=== PATIENT | female | born 1985 | race Caucasian/White ===

== ENCOUNTER 2018-05-31 05:30 | Inpatient (IN) | payer BC ==
[~2018-05-31 05:30] MED LIST: CITRIC ACID/SODIUM CITRATE 30 ML UNIT-DOSE CUP PO ONE; ELECTROLYTE-148 SOLN 500 ML IV SCH
[2018-05-31] MEDS ORDERED: ELECTROLYTE-148 SOLN 1,000 ML IV SCH ×2 (06:00→09:15)
[2018-05-31 06:17] VITALS: BMI 34.0
[2018-05-31] MEDS ORDERED: morphine SULFATE/Preservative Free 0.5 MG/ML (1cc Syringe) ONE (07:32)
[2018-05-31] MEDS ORDERED: OXYTOCIN 20 UNITS in 0.9% NS 40 UNIT/2,000 ML INFUS.BAG IV ONE (08:02)
[2018-05-31 08:52] LABS: ARTERIAL BLD GAS O2 SATURATION 36.7 % (90-98.9); ARTERIAL BLOOD GAS BASE EXCESS -1.4 meq/l (-2-2); ARTERIAL BLOOD GAS PCO2 49.5 mmHg (35-45); ARTERIAL BLOOD GAS PO2 20.1 mmHg (80-100); ARTERIAL BLOOD GAS pH 7.32 (7.35-7.45)
[2018-05-31 08:56] LABS: VENOUS PC02 45.4 mmHg (38-52); VENOUS PH 7.36 (7.32-7.42); VENOUS PO2 27.1 mmHg (28-48)
--- NOTE | 2018-05-31 09:01 | HP ---
Past Medical History - Past Medical History ...: 1 ...Para: 0 ...LMP: 09/01/17 ...EDC by [facility]: 06/07/18 - Smoking History Smoking history: Never smoked - Alcohol/Substance Use Hx Alcohol Use: No Home Medications - Allergies Allergies/Adverse Reactions: Allergies Allergy/AdvReac Type Severity Reaction Status Date / Time Penicillins Allergy Intermediate Hives Verified 05/31/18 06:24 - Home Medications Home Medications: Ambulatory Orders Vitamin Tablet 1 tab PO DAILY 05/31/18 Physical Exam - Maternity Vital Signs: Vital Signs Temperature 98.5 F 05/31/18 06:20 Pulse Rate 86 05/31/18 06:20 Respiratory Rate 20 05/31/18 06:20 Blood Pressure 128/70 05/31/18 06:20 O2 Sat by Pulse Oximetry (%)
--- NOTE | 2018-05-31 09:01 | OP ---
Operative Note - Note: Operative Date: 05/31/18 Pre-Operative Diagnosis: 33yo P0 @ 39 wks in breech Operation: Primary c/section Findings: viable male, APGARs 9 Post-Operative Diagnosis: Same as Pre-op Surgeon: Elle David Anesthesiologist/METAL SPRAYER: Sunil Rock Anesthesia: Spinal Estimated Blood Loss (mls): 500 Operative Report Dictated: Yes
[2018-05-31] MEDS ORDERED: BENZOCAINE 28 GM HEMORRHOIDAL OINTMENT TP PRN (09:02)
[2018-05-31] MEDS ORDERED: METHYLERGONOVINE MALEATE 0.2 MG/1 ML AMP IM PRN (09:02)
[2018-05-31] MEDS ORDERED: WITCH HAZEL 50% (TUCKS) 40 PAD/JAR PAD TP PRN (09:02)
[2018-05-31] MEDS ORDERED: BENZOCAINE 20% 57 GM BOTTLE TP PRN (09:02)
--- NOTE | 2018-05-31 09:02 | PN ---
Delivery - Delivery Section: Primary, Low Flap Transverse Episiotomy/Laceration: None EBL (cc): 500 Delivery, Single - Stages of Labor Date of Delivery: 05/31/18 Date Placenta Delivered: 05/31/18 Placenta: Yes: Expressed - Condition of Infant Manager Of Exhibitions And Collections/Compounding Assistant Present: Yes Gender: Male - 1 Minute Total Score: 9 5 Minutes Total Score: 9 - Feeding Plan Initial Plan: Exclusive throughout hospitalization
[2018-05-31] MEDS ORDERED: TUBERCULIN PPD 5 TU/0.1ML SYRINGE (IN PATIENT USE ONLY) ID ONE (10:00)
[2018-05-31] MEDS ORDERED: ENOXAPARIN NA (PORCINE) 40 MG/0.4 ML DISP.SYRIN SQ SCH (10:00)
[2018-05-31] MEDS ORDERED: ONDANSETRON 4 MG/2 ML VIAL IVPUSH PRN (10:13)
[2018-05-31] MEDS ORDERED: IBUPROFEN 800 MG/8 ML IJ IVPB ONE (11:33)
[2018-05-31] MEDS: IBUPROFEN 800 MG/8 ML IJ IVPB PRN (11:45)
[2018-05-31] MEDS ORDERED: ACETAMINOPHEN 1000 MG/100 ML VIAL (NON FORMULARY) IVPB ONE (16:33)
[2018-06-01] MEDS: IBUPROFEN 800 MG/8 ML IJ IVPB PRN (05:15)
--- NOTE | 2018-06-01 07:11 | PN ---
Post Progress Note - Subjective Subjective: Patient without acute complaints. Continued vulvar swelling, R>L, improved from overnight Tolerating PO intake, without nausea or vomiting No voiding, callejas in place draining clear fluid No ambulation or flatus yet. Denies fevers or chills. Pain well controlled. Post Day: 1 Type of Delivery: Primary C/S Vital Signs: Vital Signs Temperature 98.9 F 06/01/18 06:00 Pulse Rate 82 06/01/18 06:00 Respiratory Rate 20 06/01/18 06:00 Blood Pressure 107/54 L 06/01/18 06:00 O2 Sat by Pulse Oximetry (%) 100 05/31/18 10:30 Breast Exam: Yes: Soft Uterus: Yes: Fundus Firm Incision: Yes: Dressing dry and intact Abdomen/GI: Yes: Abdomen soft, Abdominal Distention (soft, mild), Passing flatus , Tolerating PO. No: Tender Lochia: Yes: Serosa Lochia, amount: Small Extremities: Yes: Calves non-tender, Edema (trace) Perineum: Yes: Intact (vulvar edema, L > R) Assessment/Plan 33 yo POD # 1 s/p CD, afebrile, vital signs stable, doing well 1. Continue routine postoperative care. 2. Follow up AM CBC 3. Rh positive status, no rhogam indicated. 4. Encourage ambulation and incentive spirometer use 5. Continue oral pain medication 6. Continue ice packs to vulva 7. Anticipate discharge home postoperative day #3 or #4
[2018-06-01 08:07] LABS: BASO % 0.6 % (0-2.0); EOS % 0.1 % (0-4.5); HEMATOCRIT 24.9 % (32.4-45.2); HEMOGLOBIN 8.2 GM/dL (10.7-15.3); LYMPH % 19.1 % (8-40); MCH 28.2 pg (25.7-33.7); MCHC 32.9 g/dl (32.0-36.0); MEAN CELL VOLUME 85.5 fl (80-96); MEAN PLT VOLUME 9.1 fl (7.5-11.1); MONO % 8.2 % (3.8-10.2); PLATELET COUNT 205 K/MM3 (134-434); RBC 2.92 M/mm3 (3.60-5.2); RDW 15.1 % (11.6-15.6)
[2018-06-01] MEDS ORDERED: BISACODYL 10 MG SUPP.RECT RC PRN (09:02)
[2018-06-01] MEDS: ENOXAPARIN NA (PORCINE) 40 MG/0.4 ML DISP.SYRIN SQ SCH (10:11)
--- NOTE | 2018-06-01 10:30 | PN ---
Progress Note (short form) - Note Progress Note: POD #1 - s/p under spinal anesthesia with duramorph. VSS. Pt. doing well, walking about room comfortably. No complaints. Good pain control. No apparent anesthetic complications noted. Continue current care.
[2018-06-01] MEDS: SIMETHICONE 80 MG TAB.CHEW (FP) PO PRN ×2 (10:47→18:36)
[2018-06-01] MEDS: ACETAMINOPHEN 500 MG TABLET (FP) PO PRN ×2 (10:47→18:35)
[2018-06-01] MEDS: IBUPROFEN 600 MG TABLET (FP) PO PRN ×2 (10:48→18:36)
[2018-06-02] MEDS: SIMETHICONE 80 MG TAB.CHEW (FP) PO PRN (02:23)
[2018-06-02] MEDS: IBUPROFEN 600 MG TABLET (FP) PO PRN ×2 (02:23→11:27)
[2018-06-02] MEDS: ACETAMINOPHEN 325 MG TABLET (FP) PO PRN ×2 (02:24→11:26)
--- NOTE | 2018-06-02 08:04 | PN ---
Progress Note (short form) - Note Progress Note: pod 2 s/p c/s , doing well, ambulating, passing gas, no excess vaginal bleeding , no dizziness CBC, BMP 06/01/18 07:45 Last Vital Signs Temp Pulse Resp BP Pulse Ox 98.5 F 88 18 130/79 100 06/01/18 22:00 06/01/18 22:00 06/01/18 22:00 06/01/18 22:00 05/31/18 10:30 abdomen soft, non tender , no cva incision dry, clean uterus firm lochia mild no calf tenderness impression pod 2 anemia , asymptomatic plan ambulate , will start iron vit on discharge
[2018-06-02] MEDS: ENOXAPARIN NA (PORCINE) 40 MG/0.4 ML DISP.SYRIN SQ SCH (11:26)
[2018-06-03] MEDS: IBUPROFEN 600 MG TABLET (FP) PO PRN ×2 (00:21→11:24)
[2018-06-03] MEDS: ACETAMINOPHEN 325 MG TABLET (FP) PO PRN ×2 (00:22→11:22)
[2018-06-03 07:20] LABS: BASO % 0.9 % (0-2.0); EOS % 1.7 % (0-4.5); HEMATOCRIT 25.3 % (32.4-45.2); HEMOGLOBIN 8.6 GM/dL (10.7-15.3); LYMPH % 20.6 % (8-40); MCH 29.2 pg (25.7-33.7); MCHC 34.2 g/dl (32.0-36.0); MEAN CELL VOLUME 85.4 fl (80-96); MEAN PLT VOLUME 8.9 fl (7.5-11.1); MONO % 8.5 % (3.8-10.2); NEUT % 68.3 % (42.8-82.8); PLATELET COUNT 229 K/MM3 (134-434); RBC 2.96 M/mm3 (3.60-5.2); RDW 15.1 % (11.6-15.6); WHITE BLOOD COUNT 10.4 K/mm3 (4.0-10.0)
--- NOTE | 2018-06-03 08:16 | DS ---
Physical Exam-[facility]IG[facility] Vital Signs: Vital Signs Temperature 97.9 F 06/02/18 22:00 Pulse Rate 85 06/02/18 22:00 Respiratory Rate 20 06/02/18 22:00 Blood Pressure 123/77 06/02/18 22:00 O2 Sat by Pulse Oximetry (%) 100 05/31/18 10:30 Constitutional: Yes: Well Nourished, No Distress, Calm Eyes: Yes: WNL, Conjunctiva Clear, EOM Intact HENT: Yes: WNL, Atraumatic, Normocephalic Neck: Yes: WNL, Supple, Trachea Midline Cardiovascular: Yes: WNL, Regular Rate and Rhythm Respiratory: Yes: WNL, Regular, CTA Bilaterally Gastrointestinal: Yes: WNL ...Rectal Exam: Yes: WNL Renal/: Yes: WNL ....Post : Yes: Uterus firm, Uterus non-tender, Slight lochia rubra Breast(s): Yes: WNL Musculoskeletal: Yes: WNL Extremities: Yes: WNL Edema: Yes Edema: LLE: Trace, RLE: Trace Integumentary: Yes: WNL Wound/Incision: Yes: Clean/Dry, Well Approximated, Sutures Intact Neurological: Yes: WNL, Alert, Oriented ...Motor Strength: WNL Psychiatric: Yes: WNL, Alert, Oriented Labs: CBC, BMP 06/03/18 06:00 Delivery - Delivery Section: Primary, Low Flap Transverse Type of Anesthesia: Spinal Episiotomy/Laceration: None EBL (cc): 500 Delivery, Single - Stages of Labor Date of Delivery: 05/31/18 Time of Delivery: 08:04 Time Placenta Delivered: 08:05 Placenta: Yes: Expressed - Condition of Infant Public Stenographer/Quahogger Present: Yes Name: Mai Wooten Gender: Male Weight: 7 lb 1 oz Total Hours ROM (Hrs/Mins): 0/2 - 1 Minute Total Score: 9 5 Minutes Total Score: 9 - [place] Feeding Plan Initial Plan: Exclusive throughout hospitalization Discharge Summary Reason For Visit: ADMIT-C/S Procedures: Principal: primary LST c/s Condition: Good - Instructions Diet, Activity, Other Instructions: regular diet, follow up in office 1 week , if fever, heavy vaginal bleeding, sever pain call md cont pnv, iron Referrals: Elle David MD [Staff Physician] - Disposition: HOME - Home Medications Comprehensive Discharge Medication List: Ambulatory Orders Vitamin Tablet 1 tab PO DAILY 05/31/18 Ibuprofen [Motrin -] 600 mg PO QID #28 tablet 06/02/18
[2018-06-03] MEDS: ENOXAPARIN NA (PORCINE) 40 MG/0.4 ML DISP.SYRIN SQ SCH (11:21)
[2018-06-03] MEDS: SIMETHICONE 80 MG TAB.CHEW (FP) PO PRN (11:24)
[2018-06-03 13:19] VITALS: BP 132/88; PULSE 78; TEMP 97.8
--- NOTE | 2018-06-12 17:41 | PATH ---
Surgical Pathology Report Patient Name: ROHAN RAMIREZ [place]. Rec. #: [id number] /Age/Gender: 1985 (Age: 33) / F Account: [id number] Location: [facility] OBS/CASINO INVESTIGATOR Taken: 05/31/2018 Received: 06/01/2018 Reported: 06/12/2018 Physicians: Elle David M.D. Specimen(s) Received PLACENTA Clinical History History of asthma, GERD Migraines Final Diagnosis PLACENTA, SECTION: 473 G THIRD TRIMESTER PLACENTA WITH TRIVASCULAR UMBILICAL CORD AND UNREMARKABLE PLACENTAL MEMBRANES. Electronically Signed Nahomy Leblanc M.D. Gross Description The specimen is received fresh labeled placenta and is a 473 gram, 16.0 x 15.5 x 2.8 cm. placenta with attached membranes and umbilical cord. The attached membranes are marrufo, translucent with focal opacities and insert marginally. The umbilical cord measures 15 cm. in length and averages 1.2 cm. in diameter. The cord inserts eccentrically, 4.5 cm. to the nearest margin. No true knots or strictures are identified. Cut surface of the umbilical cord reveals 3 vessels. The surface is berry-blue with minimal fibrin deposition and appropriate caliber vessels. The maternal surface is red-brown with focal defects. Sectioning reveals red-brown, spongy parenchyma. No lesions are identified. Manager Net sections are submitted in three cassettes as follows: 1- membrane rolls and umbilical cord; 2-3- full thickness sections of placenta. /06/09/201806/09/2018
--- NOTE | 2018-06-18 20:48 | OP ---
DATE OF OPERATION: DATE OF DICTATION: 06/18/2018 PREOPERATIVE DIAGNOSES: A 33-year-old, para 0, at 39 weeks, with fetus in breech presentation, for primary section. POSTOPERATIVE DIAGNOSES: A 33-year-old, para 0, at 39 weeks, with fetus in breech presentation, for primary section. PROCEDURE: Primary low-segment transverse section. SURGEON: Elle David MD CLINICAL CARE MANAGER: JUSTEN Hutchins ANESTHESIA: DESCRIPTION OF OPERATIVE PROCEDURE: After ensuring informed consent, patient was brought to the operating room, where she was placed in dorsal supine position with left lateral tilt. Abdomen was prepped and draped in sterile fashion. A Pfannenstiel skin incision was made with a scalpel and carried down to the level of fascia with Bovie cautery. Fascia was incised with the Bovie. Fascia was extended bilaterally with the Bovie cautery. Fascia was dissected off the rectus abdominis muscle with the Bovie cautery. Muscle was split in the midline. Peritoneum was tented and entered with Metzenbaum scissors, with good visualization of underlying structures. Fascial incision was extended superiorly and inferiorly. Bladder was retracted with the lower edge of the Gary. Vesicouterine peritoneum identified, incised, and bladder flap created, retracted with the low edge of the Christine. Gutters bilaterally packed with lap sponges. Uterine incision was made with the scalpel and extended bilaterally with bandage scissors. Infant's buttocks were delivered first. The infant was found to be in a complete breech presentation. The towel was applied to the 's sacrum and was maneuvered outside of the incision. Shoulders were delivered by rotating right and left shoulder, one at a time, atraumatically. The right Veit-Mauriceau maneuver was applied with fundal pressure to deliver the 's head, without any difficulty. Cord was clamped and cut. was handed to pediatricians. The placenta was expressed manually and uterus was cleared of clots and debris and repaired with 0 Biosyn in running locking fashion. The 2nd imbricating layer on the uterus was created to imbricate the first layer with 0 Biosyn as well. Excellent hemostasis was achieved. Abdomen was cleared of clots and debris. Lap sponges were removed. Abdomen was irrigated. Peritoneum was repaired with 0 Biosyn. The muscle was reapproximated at the midline. Fascia was closed with 0 Vicryl in running fashion. The skin was repaired with 4-0 Biosyn in a V-Loc suture. Abdomen was covered with dressings. The vagina was irrigated with Betadine and uterus was expressed. Excellent hemostasis was noted. EBL was 500 mL. Patient tolerated procedure well and was brought to the recovery room in stable condition. Phoebe FRASER/[id number]
== END 2018-06-03 14:05 | disposition home or self-care (01) | DRG 788 ==
LOC: JLDR 05:30 → J3W 13:05
PROVIDERS: ADMIT Obstetrics & Gynecology; ATTEND Obstetrics & Gynecology
PROC: 10D00Z1 Extraction of Products of Conception, Low, Open Approach (ICD-10-PCS; principal; 2018-05-31)
DX: O32.1XX0 Maternal care for breech presentation, not applicable or unspecified (principal); Z3A.39 39 weeks gestation of pregnancy; Z37.0 Single live birth
CPT/HCPCS: 36415; 36600; 82803; 85025; 88307-TC; J0131